=== PATIENT | male | born 1965 | race Caucasian/White ===

== ENCOUNTER 2019-05-31 13:24 | Emergency (ER) | payer OTHER, SELFPAY ==
--- NOTE | ~2019-05-31 | XR_ITS ---
XR ankle RT min 3V DATE: 05/31/2019 14:31 INDICATION: Injury. Bruising and swelling. TECHNIQUE: 4 views COMPARISON: None FINDINGS: There is a nondisplaced spiral fracture of the lateral malleolus. The medial and posterior malleoli are intact. The ankle mortise appears preserved. IMPRESSION: Lateral malleolar fracture Reviewed, dictated and finalized at location A. IMPRESSION: Lateral malleolar fracture
--- NOTE | ~2019-05-31 | XR_ITS ---
XR foot RT min 3V DATE: 05/31/2019 14:30 INDICATION: Injury. Bruising and swelling. TECHNIQUE: 4 views COMPARISON: None FINDINGS: Lateral malleolar fractures again noted. Plantar and posterior calcaneal enthesopathy. Os tibiale externum, normal variant. No other fracture or dislocation. IMPRESSION: Lateral malleolar fracture Reviewed, dictated and finalized at location A. IMPRESSION: Lateral malleolar fracture
[2019-05-31 13:34] VITALS: BP 146/90; PULSE 86; RESP 20; TEMP 36.9; O2SAT 99
--- NOTE | 2019-05-31 13:59 | ED.LOWEXIN ---
HPI - Extremity Injury (Lower) General Chief Complaint: Extremity Injury, Lower Stated Complaint: R ANKLE PAIN S/P INJURY Time Seen by Provider: 05/31/19 13:44 Source: patient Mode of arrival: ambulatory Limitations: no limitations History of Present Illness HPI Narrative: A 53 y/o male presents to the ED with c/o right ankle injury. Pt states that he has a PMHx of multiple sclerosis and has limited feeling in his BLE. He notes that last night he was walking in his kitchen when he rolled his right ankle and fell. Pt reports right ankle swelling and right ankle eccymosis, but denies back pain, hip pain, neck pain, and ABD pain. He adds that he does not have any right ankle pain due to the peripheral neuropathy. Pt states he cannot put weight on his right ankle. MD complaint: ankle injury (Right) Onset (ago): day(s) (1) Injury: Right: ankle Place: home Context: fall Associated symptoms: swelling (Right ankle), unable to bear weight and other (Right ankle eccymosis) Other symptoms: none Related Data Home Medications Medication Instructions Recorded Confirmed pregabalin 50 mg PO BID 05/31/19 Allergies Allergy/AdvReac Type Severity Reaction Status Date / Time No Known Allergies Allergy Verified 05/31/19 13:43 Review of Systems Review of Systems: All systems reviewed & are unremarkable except as noted in HPI and below Gastrointestinal: Gastrointestinal: Denies abdominal pain Musculoskeletal: Musculoskeletal: Denies back pain, Denies arthralgias (Hip) and Denies neck pain Integumentary/Breasts: Skin/Breast: Reports swelling (Right ankle) and Reports unusual bruising (Right ankle) PMFSH Past Medical History Medical History (Updated 05/31/19 @ 15:52 by Isma Lazar MD) Diabetes HTN (hypertension) Multiple sclerosis Surgical History Surgical History (Updated 05/31/19 @ 13:59 by Guerline Hernandez) No pertinent past surgical history Social History Social History (Updated 05/31/19 @ 14:00 by Guerline Hernandez) Smoking status: Current every day smoker Tobacco type: cigarettes Second hand tobacco smoke exposure: Yes Alcohol intake: current Alcohol use details: Chronic alcoholic Exam Narrative: Exam Narrative: General appearance: Well-developed, well-nourished Skin: Normal color Head: Normocephalic, nontraumatic Eyes: Clear conjunctiva ENT: Oropharynx normal, ears normal, nose normal Neck: Supple, nontender Chest and respiratory: Airway patent, no respiratory distress, no accessory muscle use Heart: Regular rate/rhythm Abdomen: Soft, nontender, no organomegaly, quiet bowel sounds Vascular: Normal peripheral pulses, normal capillary refill. Musculoskeletal: Normal range of motion, nontender back, moderate tenderness, diffuse swelling of the right ankle and foot. No deformity. No wound. Neurologic: Alert and oriented ?3, , no gross motor deficit Course Course Emergency Course: Stable Vital Signs Vital signs: Vital Signs Temperature 36.9 C 05/31/19 13:34 Pulse Rate 86 05/31/19 13:34 Respiratory Rate 20 05/31/19 13:34 Blood Pressure 146/90 H 05/31/19 13:34 Pulse Oximetry 99 05/31/19 13:34 Temperature 36.9 C 05/31/19 13:34 Pulse Rate 86 05/31/19 13:34 Respiratory Rate 20 05/31/19 13:34 Blood Pressure 146/90 H 05/31/19 13:34 Pulse Oximetry 99 05/31/19 13:34 MDM - Extremity Injury (Lower) MDM Narrative Medical decision making narrative: History of MS, chronic peripheral neuropathy. Sprain, strain, fracture of the right ankle/foot is my concern. X-ray right foot and ankle ordered. Further plan to follow Differential Diagnosis Differential diagnosis: Likely ankle sprain and st
== END 2019-05-31 16:29 | disposition home or self-care (01) ==
PROVIDERS: Emergency Provider Emergency Medicine; PCP Internal Medicine
DX: S82.64XA Nondisplaced fracture of lateral malleolus of right fibula, initial encounter for closed fracture (principal); E11.9 Type 2 diabetes mellitus without complications; I10 Essential (primary) hypertension; G35 Multiple sclerosis; F17.210 Nicotine dependence, cigarettes, uncomplicated; M77.31 Calcaneal spur, right foot; M77.51 Other enthesopathy of right foot and ankle; W01.0XXA Fall on same level from slipping, tripping and stumbling without subsequent striking against object, initial encounter
CPT/HCPCS: 29515; 73610; 73630; 99284

== ENCOUNTER 2019-06-10 07:57 | Outpatient (CLI) | payer OTHER, SELFPAY ==
--- NOTE | ~2019-06-10 | XR_ITS ---
EXAMINATION: XR chest 2V DATE: 06/10/2019 08:23 INDICATION: Fever TECHNIQUE: PA and lateral views of the chest were obtained. COMPARISON: Chest radiograph dated 07/27/2013 FINDINGS: The lungs remain clear with no focal airspace opacities, pulmonary edema, pleural effusion or pneumot horax. The cardiomediastinal silhouette is normal. Mild thoracic spondylosis. IMPRESSION: 1. No acute cardiopulmonary disease. Reviewed, dictated and finalized at location A.
[2019-06-10 08:20] LABS: Basophils Percent Auto 0.2 % (0.2-1.2); Eosinophils Percent Auto 0.1 % (0-4.4); Hematocrit 38.8 % (42.0-52.0); Hemoglobin 13.2 g/dL (14.0-18.0); Immature Granulocyte Absolute 0.06 K/mm3 (0.00-0.031); Immature Granulocyte Percent A 0.5 % (0-0.5); Lymphocytes Absolute Auto 1.15 K/mm3 (0.9-3.2); Mean Corpuscular Hemoglobin 31.1 pg (26-34); Mean Corpuscular Volume 91.5 fl (80-100); Mean Platelet Volume 10.2 fl (7.4-10.4); Monocytes Absolute Auto 1.1 K/mm3 (0.1-0.6); Monocytes Percent Auto 8.7 % (2.6-8.5); Neutrophils Absolute Auto 10.4 K/mm3 (1.3-6.7); Neutrophils Percent Auto 81.5 % (45.5-73.1); Platelet Count Result 161 k/mm3 (150-375); Red Blood Count 4.24 M/mm3 (4.6-6.20); White Blood Count 12.8 K/mm3 (4.5-10.0)
[2019-06-10 08:31] LABS: Blood Urea Nitrogen 16 mg/dL (9-20); Calcium 9.6 mg/dL (8.4-10.2); Carbon Dioxide 25 mmol/L (22-30); Chloride 106 mmol/L (98-107); Estimated Glomerular Filt Rate > 60; Glucose 119 mg/dL (75-110); Potassium 3.8 mmol/L (3.4-5.0); Sodium 137 mmol/L (137-145)
[2019-06-10 08:51] LABS: Influenza Control Positive
== END 2019-06-10 07:58 | disposition home or self-care (01) ==
PROVIDERS: PCP Internal Medicine; Visit Provider Internal Medicine
DX: R68.89 Other general symptoms and signs (principal); R50.9 Fever, unspecified
CPT/HCPCS: 71046; 80048; 85025; 87804